=== PATIENT | female | born 1940 | race Caucasian/White ===

== ENCOUNTER → 2018-03-08 | Outpatient (CLI) | payer OTHER ==
[~2018-03-08] MED LIST: ACEDIPPM PO; ALBU.083IS IH; ALBU90OI6 INH; ALBU90OI61 INH; AMIT25 PO; AMLO5 PO; ASPI81CH PO; ASPI81EC PO; AZOR PO; BENZ100A PO; BUDE6HFA INH; CALCA500CH PO; CALCIUM PO; CETI10 PO; CITA20 PO; EXELON; GLUC500 PO; HYDACE5325 PO; INS70/30PN SC; INSDET100 SQ; INSDET100 SUBQ; INSUASPI SUBQ; INSULANPEN SC; LANS15EC PO; LORA1 PO; LOSARTAN; MELO7.5 PO; METANX; METANX PO; METF500C PO; MULVITMINF PO; OMEP20ER PO; ONDA4ODT MM; OXYGEN; POTASSIUM PO; PREG75 PO; SYMBICORT INH; TEMA15 PO; TIOT18 IH; TYLENOL PM PO; ZERTEC PO; [UNRECOGNIZED DRUG - OTHER]
== END | disposition home or self-care (01) ==
LOC: LAB 17:33 → LAB SHORT 17:33
DX: E11.59 Type 2 diabetes mellitus with other circulatory complications (principal); M86.179 Other acute osteomyelitis, unspecified ankle and foot
CPT/HCPCS: 87070; 87075; 87205

== ENCOUNTER 2021-10-28 08:47 | Inpatient (IN) | payer OTHER ==
[~2021-10-28] VITALS: Ht 162.6 cm; Wt 77.6 kg
[~2021-10-28 08:47] MED LIST changes: +Aspir 8181 MG PO; +DULO30 PO; +GABA100 PO; +TRAM50 PO; +Zantac150 MG PO
[2021-10-28 09:31] LABS: BASOPHILS ABSOLUTE AUTO 0.01 K/mm3 (0.00-0.23); BASOPHILS PERCENT AUTO 0 % (0-2); EOSINOPHILS ABSOLUTE AUTO 0.08 K/mm3 (0.00-0.68); EOSINOPHILS PERCENT AUTO 1 % (0-6); Hematocrit 40.1 % (33.0-51.0); Hemoglobin 13.5 g/dL (11.5-16.0); IMMATURE GRAN ABSOLUTE AUTO 0.07 K/mm3 (0.00-0.10); IMMATURE GRAN PERCENT AUTO 1 % (0-1); LYMPHOCYTES ABSOLUTE AUTO 3.85 K/mm3 (0.84-5.20); LYMPHOCYTES PERCENT AUTO 29 % (21-46); MONOCYTES ABSOLUTE AUTO 0.27 K/mm3 (0.16-1.47); MONOCYTES PERCENT AUTO 2 % (4-13); Mean Corpuscular HGB 32.2 pg (26.0-34.0); Mean Corpuscular HGB Conc 33.7 g/dL (31.5-36.5); Mean Corpuscular Volume 96 fL (80-100); Mean Platelet Volume 11.9 fL (9.1-12.4); NEUTROPHILS ABSOLUTE AUTO 9.19 K/mm3 (1.96-9.15); NEUTROPHILS PERCENT AUTO 68 % (41-73); Platelet Count 216 K/mm3 (150-400); RDW Coefficient Variation 14.2 % (11.7-14.2); RDW Standard Deviation 50.4 fL (35.1-46.3); Red Blood Cell Count 4.19 M/mm3 (3.80-5.20); White Blood Cell Count 13.47 K/mm3 (4.00-11.30)
[2021-10-28 09:45] LABS: Anion Gap 8 mmol/L (6-16); Blood Urea Nitrogen 61 mg/dL (8-24); Bun/Creatinine Ratio 26.5 (12.0-20.0); CO2, Blood 19 mmol/L (21-32); Calcium, Blood 8.7 mg/dL (8.5-10.1); Chloride, Blood 113 mmol/L (98-108); Glomerular Filtration Rate 20 (60-); Glucose, Blood 82 mg/dL (70-99); Magnesium, Blood 2.4 mg/dL (1.6-2.4); Potassium, Blood 4.3 mmol/L (3.5-5.5); Sodium, Blood 140 mmol/L (136-145); Troponin I <0.015 ng/mL (0.000-0.040)
[2021-10-28] MEDS ORDERED: PANT40 PO (11:05)
[2021-10-28] MEDS ORDERED: TIOT18 INH (11:05)
[2021-10-28] MEDS ORDERED: EXELON1 EA10 TOP (11:05)
[2021-10-28] MEDS ORDERED: MIRALAX17 GM PO (11:06)
[2021-10-28] MEDS ORDERED: ACET500 PO (11:06)
[2021-10-28] MEDS ORDERED: FOLIKA-NC TABL1 EACH PO (11:08)
[2021-10-28] MEDS ORDERED: Colace100 MG PO (11:09)
[2021-10-28] MEDS ORDERED: Vitamin B Comple1 EA PO (11:11)
[2021-10-28] MEDS ORDERED: Vitamin B-12100 MCG SL (11:11)
[2021-10-28] MEDS ORDERED: VITAMIN D32000 UNI1 PO (11:12)
[2021-10-28] MEDS ORDERED: Doxycycline Mo100 M1 PO (11:13)
[2021-10-28] MEDS ORDERED: LATA.005SO BOTHEYES (11:14)
[2021-10-28] MEDS ORDERED: LOSARTAN POTAS100 M1 PO (11:15)
[2021-10-28] MEDS ORDERED: ALBU2.5V5 INH (11:16)
[2021-10-28 13:56] LABS: Base Excess Venous -8.2 mmol/L; Bicarbonate Venous 18.9 mmol/L (24.0-30.0); PCO2 Venous 29.3 mmHg (38-42); pH Blood Venous 7.37 (7.34-7.37)
--- NOTE | 2021-10-28 17:12 | NUR ---
SHIFT SUMMARY PT HAS BEEN RESTING IN BED SINCE ADMISSION. PT IS ALERT BUT ORIENTED TO SELF AND FAMILY ONLY. PT HAS ASKED "WHAT AM I DOING HERE?" EVERY TIME THIS RN INTERACTS WITH THE PT. SPOKE WITH PT'S DAUGHTER TO OBTAIN HEALTH HISTORY. PT IS CURRENTLY STABLE ON BIPAP /6 75%. PT WAS HYPOTENSIVE IN ER, AFTER FLUID BOLUS AND MAINTENANCE FLUIDS, PT BP IS NOW 147/102. SPO2 HAS REMAINED >90% SINCE ADMISSION.
[2021-10-29 04:11] LABS: BASOPHILS PERCENT AUTO 0 % (0-2); EOSINOPHILS PERCENT AUTO 0 % (0-6); Hematocrit 35.8 % (33.0-51.0); Hemoglobin 11.9 g/dL (11.5-16.0); IMMATURE GRAN ABSOLUTE AUTO 0.04 K/mm3 (0.00-0.10); IMMATURE GRAN PERCENT AUTO 0 % (0-1); LYMPHOCYTES ABSOLUTE AUTO 0.74 K/mm3 (0.84-5.20); LYMPHOCYTES PERCENT AUTO 6 % (21-46); MONOCYTES ABSOLUTE AUTO 0.39 K/mm3 (0.16-1.47); MONOCYTES PERCENT AUTO 3 % (4-13); Mean Corpuscular HGB 31.9 pg (26.0-34.0); Mean Corpuscular HGB Conc 33.2 g/dL (31.5-36.5); Mean Corpuscular Volume 96 fL (80-100); Mean Platelet Volume 11.7 fL (9.1-12.4); NEUTROPHILS PERCENT AUTO 91 % (41-73); Platelet Count 208 K/mm3 (150-400); RDW Coefficient Variation 14.3 % (11.7-14.2); RDW Standard Deviation 50.7 fL (35.1-46.3); Red Blood Cell Count 3.73 M/mm3 (3.80-5.20); White Blood Cell Count 12.27 K/mm3 (4.00-11.30)
[2021-10-29 04:27] LABS: Bun/Creatinine Ratio 26.6 (12.0-20.0); Calcium, Blood 8.2 mg/dL (8.5-10.1); Creatinine, Blood 2.52 mg/dL (0.40-1.00); Magnesium, Blood 2.3 mg/dL (1.6-2.4); Potassium, Blood 5.2 mmol/L (3.5-5.5)
--- NOTE | 2021-10-29 05:50 | NUR ---
SHIFT SUMMARY: PATIENT HAS MAINTAINED O2 SATS>94% ON BIPAP T/O SHIFT. PATIENT'S MOST RECENT BPS HAD MAPS <=60. THESE WERE CONSISTENT WITH ADMITTANCE TO ED BPS, SO DR. HOFFMANN WAS CALLED AND ORDER FOR MAINTENANCE FLUIDS WAS ENTERED. ORAL CARE Q4HR VIA REDDYPORT AND Q2HR REPOSITIONING. PATIENT DENIES CHEST PAIN AND OTHER DISCOMFORT. HAS TREMORS WHEN AWAKE THAT SUBSIDE WHEN ASLEEP. NO ADVERSE EVENTS THIS SHIFT. WILL REPORT TO ONCOMING RN.
--- NOTE | 2021-10-29 11:41 | NUR ---
Spiritual care visit conducted. Patient is sitting up in bed and alert. Patient admits to being scared and anxious. She shares about her Christian israel, the support of her dtr and the love of her dog Johnson. I provide therapeutic listening, anxiety containment and prayer. Patient responds well and shows signs of increased peace.
--- NOTE | 2021-10-29 17:23 | NUR ---
PT ABLE TO TOLERATE AIRVO FOR PERIODS OF TIME T/O DAY, BACK ON BIPAP FOR REST BREAKS. PT HX OF ALZHIEMERS, SHORT TERM MEMORY LOSS EVIDENT, PT REQUIRES MANY REMINDERS AND BED ALARM ON FOR SAFETY. PT APPEARED TO SLEEP MOST OF THE DAY, TURN Q 2, MINIMAL APPETITE. PT'S FAMILY UPDATED ON CONDITION VIA PHONE CALL. PT IN AFIB RVR AT THE START OF THE SHIFT, NOTIFIED AND ORDERS RECEIVED. PT CONVERED BACK TO R W PACs THIS AFTERNOON AROUND 1530. VSS AND PT ASYMPTOMATIC. WILL CONTINUE TO MONITOR AND REPORT OFF TO NOC SHIFT RN.
--- NOTE | 2021-10-29 17:46 | NUR ---
Palliative consult received and reviewed. Pt is pleasantly confused. Remains on Cpap and airvo, switching between them as tolerated. She appears scared at times. She has dementa at her baseline, and while she is able to make some of her wants and needs known, there is still a barrier.
--- NOTE | 2021-10-30 05:13 | NUR ---
SHIFT SUMMARY: VS STABLE T/O SHIFT. PATIENT DENIES CHEST PAIN OR OTHER DISCOMFORT. PLEASANT AND COOPERATIVE WITH CARE. PATIENT IS BACK ON BIPAP AND TOLERATING IT WELL. THIS RN SPOKE WITH FAMILY AT 2330 WHO HAD CALLED FOR AN UPDATE. THIS RN COMMUNICATED TO PATIENT THAT HER FAMILY LOVES AND MISSES HER. SHE REPLIED, "THAT WAS NICE. I LOVE AND MISS THEM TOO." NO ADVERSE EVENTS THIS SHIFT, WILL CONTINUE TO MONITOR AND REPORT TO ONCOMING RN.
[2021-10-30 05:16] LABS: BASOPHILS ABSOLUTE AUTO 0.01 K/mm3 (0.00-0.23); BASOPHILS PERCENT AUTO 0 % (0-2); EOSINOPHILS PERCENT AUTO 0 % (0-6); Hematocrit 36.3 % (33.0-51.0); Hemoglobin 12.2 g/dL (11.5-16.0); IMMATURE GRAN ABSOLUTE AUTO 0.08 K/mm3 (0.00-0.10); IMMATURE GRAN PERCENT AUTO 1 % (0-1); LYMPHOCYTES ABSOLUTE AUTO 0.81 K/mm3 (0.84-5.20); LYMPHOCYTES PERCENT AUTO 7 % (21-46); MONOCYTES ABSOLUTE AUTO 0.38 K/mm3 (0.16-1.47); MONOCYTES PERCENT AUTO 3 % (4-13); Mean Corpuscular HGB 31.5 pg (26.0-34.0); Mean Corpuscular HGB Conc 33.6 g/dL (31.5-36.5); Mean Corpuscular Volume 94 fL (80-100); NEUTROPHILS PERCENT AUTO 89 % (41-73); Platelet Count 244 K/mm3 (150-400); RDW Coefficient Variation 14.4 % (11.7-14.2); RDW Standard Deviation 49.3 fL (35.1-46.3); Red Blood Cell Count 3.87 M/mm3 (3.80-5.20); White Blood Cell Count 12.08 K/mm3 (4.00-11.30)
[2021-10-30 05:34] LABS: International Normalized Ratio 1.18; Prothrombin Time Results 12.3 Sec (9.7-11.5)
[2021-10-30 05:49] LABS: Alanine Aminotransfer (ALT/SGP 29 U/L (12-78); Albumin, Blood 1.9 g/dL (3.4-5.0); Albumin/Globulin Ratio 0.5 (0.8-1.8); Alk Phos 186 U/L (50-136); Anion Gap 9 mmol/L (6-16); Aspartate Aminotrans (AST/SGOT 88 U/L (12-37); Bilirubin, Total 0.4 mg/dL (0.1-1.0); Blood Urea Nitrogen 71 mg/dL (8-24); Bun/Creatinine Ratio 32.1 (12.0-20.0); CO2, Blood 16 mmol/L (21-32); Calcium, Blood 8.1 mg/dL (8.5-10.1); Chloride, Blood 117 mmol/L (98-108); Creatinine, Blood 2.21 mg/dL (0.40-1.00); Ferritin, Serum 826 ng/mL (8-252); Globulin, Blood 3.5 g/dL (2.2-4.0); Glomerular Filtration Rate 21 (60-); Glucose, Blood 111 mg/dL (70-99); Lactate Dehydrogenase (Ld),Bld 788 U/L (100-240); Magnesium, Blood 2.5 mg/dL (1.6-2.4); Potassium, Blood 5.1 mmol/L (3.5-5.5); Sodium, Blood 142 mmol/L (136-145); Total Protein, Blood 5.4 g/dL (6.4-8.2); Troponin I <0.015 ng/mL (0.000-0.040)
[2021-10-30 13:26] LABS: Source, Urine Foley catheter
[2021-10-30 13:31] LABS: Appearance, Urine Clear (Clear); Bilirubin, Urine Neg (Neg); Blood, Urine Neg (Neg); Color, Urine Yellow (P-Yellow); Glucose Qualitative, Urine Neg (Neg); Ketones, Urine 1+ (Neg); Leukocyte Esterase, Urine 1+ (Neg); Nitrite, Urine Neg (Neg); Protein, Urine 1+ (Neg); Urobilinogen, Urine NORM (Normal)
[2021-10-30 13:59] LABS: Bacteria Mod /hpf; Red Blood Cells, Urine Not Seen /hpf (0-2); Squamous Epithelial Cells Rare /hpf (Few); Transitional Epithelial Cells Rare /hpf (0-Rare); White Blood Cells, Urine Rare /hpf (0-5)
--- NOTE | 2021-10-30 16:07 | NUR ---
DR BARRETTTRATE NOTIFIED OF UA RESULTS. HE STATES LEVAQUIN OK FOR ABX COVERAGE UNTIL UA CULTURES HAVE RESULTED.
--- NOTE | 2021-10-30 17:34 | NUR ---
NO ACUTE EVENTS THIS SHIFT. WOMACK PLACED FOR I&O MEASUREMENTS, UA SENT PER PROTOCOL. PT HAS HAD POOR APPETITE, DID DRINK HALF AN ENSURE FOR DINNER. PT'S DTR AUREA UPDATED THIS AM ON PT'S CONDITION, NO CHANGES SINCE THEN. PT ABLE TO TOLERATE THE AIRVO FOR A FEW HOURS AT A TIME, BEFORE BEING PLACED BACK ON BIPAP FOR REST PERIODS. WILL CONTINUE TO MONITOR AND REPORT OFF TO NOC SHIFT RN.
[2021-10-31 04:17] LABS: Hematocrit 37.3 % (33.0-51.0); Hemoglobin 12.5 g/dL (11.5-16.0); Mean Corpuscular HGB 31.7 pg (26.0-34.0); Mean Corpuscular HGB Conc 33.5 g/dL (31.5-36.5); Mean Corpuscular Volume 95 fL (80-100); Mean Platelet Volume 11.2 fL (9.1-12.4); Platelet Count 252 K/mm3 (150-400); RDW Coefficient Variation 14.4 % (11.7-14.2); RDW Standard Deviation 49.8 fL (35.1-46.3); Red Blood Cell Count 3.94 M/mm3 (3.80-5.20); White Blood Cell Count 13.06 K/mm3 (4.00-11.30)
[2021-10-31 04:38] LABS: D-Dimer, Quantitative 4.16 mg/L FEU (0.00-0.52); International Normalized Ratio 1.17; Prothrombin Time Results 12.2 Sec (9.7-11.5)
[2021-10-31 05:00] LABS: Albumin/Globulin Ratio 0.6 (0.8-1.8); Bilirubin, Total 0.4 mg/dL (0.1-1.0); Bun/Creatinine Ratio 38.3 (12.0-20.0); C-REACTIVE PROTEIN, EXT RANGE 6.01 mg/dL (0.000-0.300); Calcium, Blood 8.4 mg/dL (8.5-10.1); Creatinine, Blood 2.01 mg/dL (0.40-1.00); Globulin, Blood 3.6 g/dL (2.2-4.0); Magnesium, Blood 2.6 mg/dL (1.6-2.4); Total Protein, Blood 5.6 g/dL (6.4-8.2)
--- NOTE | 2021-10-31 05:17 | NUR ---
SHIFT SUMMARY: VS STABLE T/O SHIFT, NO ADVERSE EVENTS. SPOKE WITH PATIENT'S DAUGHTER, MARISA LOZA, EARLIER THIS EVENING FOR PATIENT UPDATE. MARISA LOZA STATED A CARD HAD BEEN SENT TO HER MOTHER FROM THE FAMILY AND ASKED IF SHE HAD RECEIVED IT. THIS RN COULD NOT FIND CARD IN PATIENT ROOM OR NURSE'S STATION. PATIENT TAKES ULTRAM 4X/DAY AT HOME - IN EMAR PRN WITH PATIENT'S HOME SCHEDULE. PATIENT HAD HEADACHE THIS EVENING THAT WAS TREATED WITH ULTRAM, ICE, AND REST. WILL CONTINUE TO MONITOR AND REPORT TO ONCOMING RN.
--- NOTE | 2021-10-31 18:13 | NUR ---
DR BARRETTTRATE AWARE OF ELEVATED D-DIMER THIS AM, CT SCAN ORDERED, BUT HAD TO BE CANCELLED D/T PT'S CREATININE LEVELS. UA RESULTS THIS AM SHOW GRAM - RODS, COVERED BY CURRENT ABX ROCEPHIN, FURTHER CULTURES PENDING. PHYSICAL THERAPY EVAL TODAY, PT IS VERY WEAK AND DECONDITIONED. PT WILL CONTINUE TO WORK WITH HER. FULL BED BATH AND LINEN CHANGE. PT SLEPT ON CPAP FOR SEVERAL HOURS AFTER THAT. ALTERNATED BETWEEN CPAP AND AIRVO THROUGHT THE DAY. GEL PAD APPLIED TO BRIDGE OF PT'S NOSE DUE TO REDNESS NOTED THERE FROM CPAP MASK. MEPLEX DRESSING TO COCCYX CHANGED, DARK RED/PURPLE SKIN DISCOLORATED NOTED ALL THROUGHOUT COCCYX AREA. STRICT Q 2 HR TURN SCHEDULE. WILL CONTINUE TO MONITOR AND REPORT OFF TO BOGDAN JAMESON.
--- NOTE | 2021-10-31 20:51 | NUR ---
PT C/O OF HEADACHE AND BACK PAIN. ULTRAM ALREADY GIVEN ON DAY SHIFT, NOT IN TIME FRAME FOR ANOTHER DOSE. CALL PLACED TO MD CARDOSO. MD CARDOSO W/ ORDERS FOR TYLENOL, SAME DOSE ON PTS HOME MED LIST. SEE EMAR.
--- NOTE | 2021-10-31 21:42 | NUR ---
PT'S DAUGHTER, MARISA LOZA, CALLED FOR UPDATE. SPOKE BRIEFLY WITH DAUGHTER AND UPDATED HOW PT'S EVENING HAS BEEN.
[2021-11-01 04:16] LABS: BASOPHILS ABSOLUTE AUTO 0.01 K/mm3 (0.00-0.23); BASOPHILS PERCENT AUTO 0 % (0-2); EOSINOPHILS PERCENT AUTO 0 % (0-6); Hematocrit 35.1 % (33.0-51.0); Hemoglobin 11.8 g/dL (11.5-16.0); IMMATURE GRAN ABSOLUTE AUTO 0.12 K/mm3 (0.00-0.10); IMMATURE GRAN PERCENT AUTO 1 % (0-1); LYMPHOCYTES ABSOLUTE AUTO 0.62 K/mm3 (0.84-5.20); LYMPHOCYTES PERCENT AUTO 5 % (21-46); MONOCYTES ABSOLUTE AUTO 0.51 K/mm3 (0.16-1.47); MONOCYTES PERCENT AUTO 4 % (4-13); Mean Corpuscular HGB 31.2 pg (26.0-34.0); Mean Corpuscular HGB Conc 33.6 g/dL (31.5-36.5); Mean Corpuscular Volume 93 fL (80-100); NEUTROPHILS PERCENT AUTO 90 % (41-73); Platelet Count 233 K/mm3 (150-400); RDW Coefficient Variation 14.2 % (11.7-14.2); RDW Standard Deviation 48.4 fL (35.1-46.3); Red Blood Cell Count 3.78 M/mm3 (3.80-5.20); White Blood Cell Count 12.56 K/mm3 (4.00-11.30)
[2021-11-01 04:17] LABS: Mean Platelet Volume 13.1 fL (9.1-12.4)
[2021-11-01 04:42] LABS: Albumin, Blood 2.2 g/dL (3.4-5.0); Anion Gap 9 mmol/L (6-16); Blood Urea Nitrogen 81 mg/dL (8-24); CO2, Blood 16 mmol/L (21-32); Calcium, Blood 8.2 mg/dL (8.5-10.1); Chloride, Blood 120 mmol/L (98-108); Creatinine, Blood 1.93 mg/dL (0.40-1.00); Ferritin, Serum 875 ng/mL (8-252); Glomerular Filtration Rate 25 (60-); Glucose, Blood 144 mg/dL (70-99); Lactate Dehydrogenase (Ld),Bld 809 U/L (100-240); Magnesium, Blood 2.6 mg/dL (1.6-2.4); Phosphorus, Blood 4.5 mg/dL (2.5-4.9); Potassium, Blood 4.7 mmol/L (3.5-5.5); Sodium, Blood 145 mmol/L (136-145)
--- NOTE | 2021-11-01 05:41 | NUR ---
SHIFT SUMMARY NO ACUTE CHANGES THIS SHIFT. PT ALERT, ORIENTED TO SELF AND PLACE. SPO2>92% ON CPAP 7, 70% FI02. TELEMETRY SHOWS NSR, HR 50'S-70'S. C/O OF HEADACHE PAIN X1. SEE PREVIOUS NOTE. WHEN RN TOOK TYLENOL IN TO ROOM, PT STATED SHE NO LONGER WAS IN PAIN/DIDNT WANT PAIN MEDS. WOMACK CATHETER DRAINED YELLOW URINE TO GRAVITY. NO BM THIS SHIFT. ORAL CARE DONE W/ SUCTION. PT REPOSITIONED Q2H. CALL LIGHT IN REACH. PT SLEPT MOST OF SHIFT.
--- NOTE | 2021-11-01 17:38 | NUR ---
SHIFT SUMMARY PT ALERT AND ORIENTED TO SELF, PLACE, AND FOLLOWING DIRECTIONS. PT DOES GET CONFUSED AT TIMES AND REPEATS HERSELF. BP STABLE. HR HAS BEEN NSR WITH PAC AND PVC. PT HAS BEEN ON CPAP OF 7 AND 70% FIO2 MOST OF SHIFT WITH 10-15 MINUTE BREAKS ON THE HIGH FLOW AT 50L AND 70%. PT ONLY TOLERATING SMALL BREAKS BEFORE SHE DESATURATES INTO THE LOW 80'S. ORAL CARE HAS BEEN PROVIDED TO PT APPROXIMATELY Q2H. WOMACK PATENT AND DRAINING DARK YELLOW URINE. PT HAS NOT HAD A BM THIS SHIFT. PT REPOSITIONED Q2H AND NEEDED. DAUGHTER MARISA LOZA CALLED AND UPDATED THIS SHIFT. PT HAS HAD POOR APPETITE, BUT ENCOURAGED TO DRINK GLUCERNA. WILL CONTINUE TO MONITOR AND REPORT TO ONCOMING RN. CALL LIGHT IN REACH AND BED ALARM ON FOR SAFETY
[2021-11-02 04:26] LABS: BASOPHILS ABSOLUTE AUTO 0.01 K/mm3 (0.00-0.23); BASOPHILS PERCENT AUTO 0 % (0-2); EOSINOPHILS PERCENT AUTO 0 % (0-6); Hemoglobin 11.6 g/dL (11.5-16.0); IMMATURE GRAN ABSOLUTE AUTO 0.15 K/mm3 (0.00-0.10); IMMATURE GRAN PERCENT AUTO 1 % (0-1); LYMPHOCYTES ABSOLUTE AUTO 0.45 K/mm3 (0.84-5.20); LYMPHOCYTES PERCENT AUTO 4 % (21-46); MONOCYTES ABSOLUTE AUTO 0.53 K/mm3 (0.16-1.47); MONOCYTES PERCENT AUTO 5 % (4-13); Mean Corpuscular HGB 31.6 pg (26.0-34.0); Mean Corpuscular HGB Conc 34.1 g/dL (31.5-36.5); Mean Corpuscular Volume 93 fL (80-100); NEUTROPHILS ABSOLUTE AUTO 10.14 K/mm3 (1.96-9.15); NEUTROPHILS PERCENT AUTO 90 % (41-73); Platelet Count 186 K/mm3 (150-400); RDW Standard Deviation 47.8 fL (35.1-46.3); Red Blood Cell Count 3.67 M/mm3 (3.80-5.20); White Blood Cell Count 11.28 K/mm3 (4.00-11.30)
[2021-11-02 04:36] LABS: Mean Platelet Volume 13.6 fL (9.1-12.4)
[2021-11-02 04:49] LABS: D-Dimer, Quantitative 4.6 mg/L FEU (0.00-0.52); International Normalized Ratio 1.31; Prothrombin Time Results 13.5 Sec (9.7-11.5)
[2021-11-02 05:35] LABS: C-REACTIVE PROTEIN, EXT RANGE 2.56 mg/dL (0.000-0.300); Magnesium, Blood 2.9 mg/dL (1.6-2.4)
[2021-11-02 05:41] LABS: Albumin, Blood 2.2 g/dL (3.4-5.0); Albumin/Globulin Ratio 0.8 (0.8-1.8); Bilirubin, Total 0.4 mg/dL (0.1-1.0); Bun/Creatinine Ratio 42.1 (12.0-20.0); Calcium, Blood 8.1 mg/dL (8.5-10.1); Creatinine, Blood 1.83 mg/dL (0.40-1.00); Globulin, Blood 2.7 g/dL (2.2-4.0); Phosphorus, Blood 4.4 mg/dL (2.5-4.9); Potassium, Blood 4.7 mmol/L (3.5-5.5); Total Protein, Blood 4.9 g/dL (6.4-8.2)
--- NOTE | 2021-11-02 05:55 | NUR ---
SHIFT SUMMARY ASSUMED CARE OF PT AT 1900. PT IS A/OX2. HEART SOUNDS REGULAR, LUNG SOUNDS DIMINISHED. PT SWITCHED FROM AIRVO TO CPAP T/O THE NIGHT. PT WILL DROP TO 80% BUT RECOVER QUICKLY. SATURATIONS REMAINED 95% AND OVE MOST OF THE NIGHT. PT HAS A WOMACK DRAINING WITH GRAVITY. URINE CLEAR AND YELLOW. PT LEGS ARE VERY STIFF AND NEEDS ASSITATNCE ROLLING. PT WAS FORGETFUL AND COULD NOT REMEBER HER DOGS NAME AT THE START OF SHIFT BUT REMEMBERED HER THIS AM. PT IS VERY HAPPY WHEN SHE HEARS ABOUT HER FAMILY CALLING AND WHEN SHE IS TOLD SHE IS IMPROVING, EVEN SLIGHTLY. CALL LIGHT IN REACH, BED IN LOWEST POSITION.
--- NOTE | 2021-11-02 08:40 | NUR ---
ASSUMPTION OF CARE Pt is confused but able to answer questions about where she is and her family and her dog "aidee". Upon entering the room she was placed on the AIRVO for PO hydration and to take her PO pills. With PO intake she quickly desaturated and needed to be put back on the CPAP which is where she is now and her O2 sats are at 95%. She also became tachycardic on the AIRVO which improved by switching over to the CPAP. She is now resting calmly in bed. she has her bed alarm on for safety and her call light in reach.
--- NOTE | 2021-11-02 09:57 | NUR ---
UPDATE Pt converted from NSR to A-fib this morning. Her heart rate is in the 80's currently and Dr Diaz has been notified with no new orders as of now. The charge nurse was also made aware.
--- NOTE | 2021-11-02 11:16 | NUR ---
UPDATE Upon rounding on this pt she pulled off her CPAP and quickly desaturated into the 60's. This nurse donned PPE and quickly entered the room to reconnect the mask. The pt reported that the mask was uncomfortable and some adjustments were made and she reported that it was more comfortable. She did reover and her sats are back up in the high 90's. Some education was done with the pt about the importance of the CPAP but she continues to be confused. Her call light is in reach and her bed alarm remains on. The palliative care nurse is updated on this morning's events and is going to reach out to the daughter.
--- NOTE | 2021-11-02 13:51 | NUR ---
UPDATE Pt contiues to pull off cpap and desat when she does so. Multiple attempts have been made to redirect the pt from pulling on the mask. Oral care has been done and PO fluids have been offered. Dr has been called and awaiting a call back. Family has been updated.
--- NOTE | 2021-11-02 14:09 | NUR ---
Pt. is in isolation and door closed offered prayers for pt.
--- NOTE | 2021-11-02 15:36 | NUR ---
I had several conversations today both with pt's daughter and granddaughter. Pt is no longer tolerating wearing the cpap mask, and had begun attempting to take it off. Family v/u this would mean pt would need to be transferred to ICU if wrist restraints were introduced along with cpap. After much delberation, they decided to change pt's status to comfort, so she would not be placed in restraints, and can also have loved ones at her bedside. Orders received from Dr. Ordonez for comfort care orders. Family arrived, are at bedside. Pt currently on 50L 02 at 70 FiO2 with sats at 90%. I will remain available.
--- NOTE | 2021-11-02 15:51 | NUR ---
Pt has requested to remove the airvo as it is "burning her nose" The family remains at the bedside and has asked for her to be switched to something more comfortable. A high flow NC was placed on the pt and she is more comfortable for now. Her o2 sats are in the miod to high 80's. She did c/o a headache and tylenol was given as ordered. A heating pad was placed on the pt's lap as she was cold. A comfort cart of food and drink was brought in for the family. Oral care has been done and the family is helping with PO fluid intake. The pt is still able to make her needs known. The doctor and palliative care nurse have both seen the pt at the bedside.
--- NOTE | 2021-11-02 17:40 | NUR ---
SHIFT SUMMARY please see previous notes. The family remains at the bedside and the pt continues to rest comfortably. She contonues on the high flow NC with sats in the low to mid 80's. The family is assisting with oral care and fluids. Repositioning has been done and the family is calling when needed.
--- NOTE | 2021-11-03 05:23 | NUR ---
SHIFT SUMMARY ASSUMED CARE OF PT AT 1900. PT WAS ALERT TO FAMILY AMD SELF, ABLE TO MAKE NEEDS KNOWN. AT AROUND 2300 FAMILY SAID THEIR GOODBYES AND PT WAS MORE LETHARGIC AND WAS ONLY ABLE TO GROAN AT FAMILY IN RESPONSE. PT WAS MEDICATED FOR PAIN T/O THE NIGHT. DAUGHTER MARISA LOZA UPDATED ABOUT PT DETERIORATING CONDITION AT 0200. SHE SAID THAT SHE WANTS THE PT TO BE COMFORTABLE AND TO NOT PASS ALONE. PT RESPIRATIONS BECAME MORE APNIC AT AROUND 0400. PT PASSED AT 0511 WITH THIS NURSE AND NURSE CAMERON RN AT 0511. MARISA LZOA NOTIFIED AND SAID SHE WOULD CALL FAMILY TO SEE IF THEY WANTED TO SAY THEIR FINAL GOODBYES. STATED THAT PT WILL GO TO [facility] IN [place]. AWAITING UPDATE FROM FAMILY.
== END 2021-11-03 06:25 | DRG 177 ==
LOC: ER 08:47 → PCU 11:31
PROVIDERS: Family Medicine; Nurse Practitioner Acute Care; Student in an Organized Health Care Education/Training Program; ADMIT Internal Medicine
PROC: 8E0ZXY6 Isolation (ICD-10-PCS; principal; 2021-10-28)
PROC: 3E0333Z Introduction of Anti-inflammatory into Peripheral Vein, Percutaneous Approach (ICD-10-PCS; 2021-10-28)
PROC: 5A09457 Assistance with Respiratory Ventilation, 24-96 Consecutive Hours, Continuous Positive Airway Pressure (ICD-10-PCS; 2021-10-30)
PROC: 5A0945A Assistance with Respiratory Ventilation, 24-96 Consecutive Hours, High Flow/Velocity Cannula (ICD-10-PCS; 2021-10-30)
DX: U07.1 COVID-19 (principal); J96.01 Acute respiratory failure with hypoxia; J12.82 Pneumonia due to coronavirus disease 2019; J96.02 Acute respiratory failure with hypercapnia; J15.9 Unspecified bacterial pneumonia; G93.41 Metabolic encephalopathy; J44.0 Chronic obstructive pulmonary disease with (acute) lower respiratory infection; N17.9 Acute kidney failure, unspecified; F11.20 Opioid dependence, uncomplicated; N18.4 Chronic kidney disease, stage 4 (severe); G30.9 Alzheimer's disease, unspecified; Z66 Do not resuscitate; Z51.5 Encounter for palliative care; F02.80 Dementia in other diseases classified elsewhere, unspecified severity, without behavioral disturbance, psychotic disturbance, mood disturbance, and anxiety; G89.4 Chronic pain syndrome; I12.9 Hypertensive chronic kidney disease with stage 1 through stage 4 chronic kidney disease, or unspecified chronic kidney disease; E66.9 Obesity, unspecified; Z68.34 Body mass index [BMI] 34.0-34.9, adult; E11.22 Type 2 diabetes mellitus with diabetic chronic kidney disease; Z88.0 Allergy status to penicillin; Z88.1 Allergy status to other antibiotic agents; Z88.5 Allergy status to narcotic agent; Z79.82 Long term (current) use of aspirin; Z79.899 Other long term (current) drug therapy
CPT/HCPCS: 36415; 71045; 80048; 80053; 80069; 81001; 82728; 82803; 82947; 83036; 83605; 83615; 83735; 83880; 84100; 84145; 84484; 85025; 85027; 85379; 85610; 86140; 87040; 87077; 87086; 87186; 93005; 93010; 94640; 94660; 94762; 96365; 96375; 97110; 97162; 99285-25; A9270; J0696; J1100; J1170; J1200; J1644; J1956; J2270; J2930; J7030; J7040; J7050